=== PATIENT | female | born 1980 | race Caucasian/White ===

== ENCOUNTER → 2020-11-01 | Outpatient (CLI) | payer OTHER, SELFPAY ==
[2020-11-06 14:28] LABS: HPV HC, High Risk Negative (Negative)
[2020-11-06 14:35] LABS: HPV Reflexed? YES, CHARGE PATIENT
== END | disposition home or self-care (01) ==
LOC: LABSPEC 16:19
PROVIDERS: Visit Provider Family Medicine
DX: Z01.419 Encounter for gynecological examination (general) (routine) without abnormal findings (principal); Z12.4 Encounter for screening for malignant neoplasm of cervix
CPT/HCPCS: 87624; 88175; G0145

== ENCOUNTER 2022-01-06 13:32 | Outpatient (CLI) | payer OTHER, SELFPAY ==
--- NOTE | 2022-01-06 13:40 | BI_ITS ---
MAMMOGRAPHY - BILATERAL SCREENING REASON FOR EXAM: Female, 41 years old. Routine annual screening examination. PERTINENT HISTORY: Non-contributory. TECHNIQUE: Digital bilateral breast andrew (3D mammographic acquisition) in the CC and MLO projections. 2-D mediolateral oblique (MLO) and craniocaudad (CC) views of both breasts were obtained. CAD: Full Field Digital Mammography with Computer Added Detection was performed. COMPARISON: None. Baseline examination. FINDINGS: Breast Composition: The breasts are heterogeneously dense, which may obscure small masses. There are no dominant masses or suspicious calcifications. No other significant abnormalities are identified. BI/SCRN MAMM (CAD)W/ANDREW BILAT IMPRESSION: Negative screening mammogram. Yearly followup mammogram recommended. (A) ASSESSMENT CATEGORY: BIRADS Category 1: Negative. A letter regarding these results will be sent to the patient by the facility within 30 days. Approximately 10% of breast cancers are not detected by mammography. A normal mammogram should not delay biopsy of a clinically suspicious abnormality. [id number] Electronically Signed: Carlos Collier MD at 14:38 EST ,
== END 2022-01-06 23:59 | disposition home or self-care (01) ==
LOC: OPBI 13:38
PROVIDERS: PCP Family Medicine; Visit Provider Family Medicine
DX: Z12.31 Encounter for screening mammogram for malignant neoplasm of breast (principal)
CPT/HCPCS: 77063; 77067

== ENCOUNTER → 2023-03-26 | Outpatient (CLI) | payer OTHER, SELFPAY ==
--- NOTE | 2023-03-26 16:01 | BI_ITS ---
MAMMOGRAPHY - BILATERAL SCREENING REASON FOR EXAM: Female, 42 years old. Routine annual screening examination. PERTINENT HISTORY: Non-contributory. TECHNIQUE: Digital bilateral breast andrew (3D mammographic acquisition) in the CC and MLO projections. 2-D mediolateral oblique (MLO) and craniocaudad (CC) views of both breasts were obtained. CAD: Full Field Digital Mammography with Computer Added Detection was performed. COMPARISON: Comparison is made with prior study dated January 06, 2022. FINDINGS: Breast Composition: The breasts are heterogeneously dense, which may obscure small masses. There are no dominant masses or suspicious calcifications. Stable small benign-appearing bilateral axillary lymph nodes. No other significant abnormalities are identified. There has been no significant change since the prior study. BI/SCRN MAMM (CAD)W/ANDREW BILAT IMPRESSION: Stable bilateral screening mammogram. Yearly follow-up mammogram recommended. (A) ASSESSMENT CATEGORY: BIRADS Category 2: Benign. A letter regarding these results will be sent to the patient by the facility within 30 days. Approximately 10% of breast cancers are not detected by mammography. A normal mammogram should not delay biopsy of a clinically suspicious abnormality. [id number] Electronically Signed: Carlos Collier MD at 8:53 EDT ,
== END | disposition home or self-care (01) ==
LOC: OPBI 15:59
PROVIDERS: PCP Family Medicine; Referring Provider Family Medicine; Visit Provider Family Medicine
DX: Z12.31 Encounter for screening mammogram for malignant neoplasm of breast (principal)
CPT/HCPCS: 77063; 77067

== ENCOUNTER → 2023-04-04 | Outpatient (CLI) | payer OTHER, SELFPAY ==
[2023-04-04 11:39] LABS: Absolute Lymphocyte Count 3.09 X10^3/uL (0.83-4.51); Absolute Neutrophil Count 4.7 X10^3/uL (2.0-7.7); Basophil# 0.03 X10^3/uL; Basophil% 0.3 % (0-1); Eosinophil# 0.14 X10^3/uL; Eosinophils% 1.6 % (0-5); Hemoglobin 13.7 g/dL (12.0-15.0); Lymphocyte # 3.09 X10^3/ul (0.83-4.51); Lymphocyte % 35.8 % (19-41); Mean Corp Hgb Conc 32.6 g/dL (32-36); Mean Corpuscular Hgb 28.1 pg (27.0-32.0); Mean Corpuscular Volume 86.1 fL (81-99); Mean Platelet Vol. 9.2 fl (6.2-12.0); Monocyte# 0.61 X10^3/uL; Monocyte% 7.1 % (0-10); NRBC Flagged by Analyzer 0 % (0-5); Neutrophil # 4.74 X10^3/uL (2.7-7.7); Neutrophil % 54.9 % (47-70); Platelet Count 483 K/mm3 (150-450); RBC Distribution Width SD 40.7 fl (35.1-43.9); Red Blood Count 4.88 M/mm3 (4.2-5.4); White Blood Count 8.6 K/mm3 (4.4-11.0)
[2023-04-04 12:03] LABS: ALB/GLOB Ratio 0.9 RATIO (0.9-2.4); AST(SGOT) 26 U/L (15-37); Alanine Aminotransfer ALT/SGPT 55 U/L (13-56); Albumin, Serum 3.6 g/dL (3.2-5.0); Alkaline Phosphatase 99 U/L (45-117); Anion Gap 8 (5-15); BUN 10 mg/dL (7-18); BUN/Creat Ratio 13.8 RATIO (10-20); Calcium,Total 8.8 mg/dL (8.5-10.1); Chloride 105 mmol/L (98-107); Cholesterol 171 mg/dL (200); Creatinine, Serum 0.72 mg/dL (0.55-1.02); EST Glomerular Filtration Rate 94 mL/min (>60); Est Glom Filt Rate - Afr Amer 114 mL/min (>60); Glucose 85 mg/dL (74-106); High Density Lipoprotein 55 mg/dL; Potassium 3.9 mmol/L (3.5-5.1); Protein, Total 7.6 g/dL (6.4-8.2); Sodium Level 139 mmol/L (136-145); Triglycerides 75 mg/dL; Very Low Density Lipoprotein 15 mg/dL (5-40)
== END | disposition home or self-care (01) ==
LOC: LAB 10:47
PROVIDERS: PCP Family Medicine; Referring Provider Family Medicine; Visit Provider Family Medicine
DX: Z00.00 Encounter for general adult medical examination without abnormal findings (principal); R03.0 Elevated blood-pressure reading, without diagnosis of hypertension
CPT/HCPCS: 36415; 80053; 80061; 85025

== ENCOUNTER → 2024-07-01 | Outpatient (CLI) | payer OTHER, SELFPAY ==
--- NOTE | 2024-06-30 16:27 | BI_ITS ---
MAMMOGRAPHY - BILATERAL SCREENING REASON FOR EXAM: Female, 44 years old. Routine annual screening examination. PERTINENT HISTORY: Non-contributory. TECHNIQUE: Digital bilateral breast andrew (3D mammographic acquisition) in the CC and MLO projections. 2-D mediolateral oblique (MLO) and craniocaudad (CC) views of both breasts were obtained. CAD: Full Field Digital Mammography with Computer Added Detection was performed. COMPARISON: Comparison is made with prior study dated March 26, 2023 and January 06, 2022. FINDINGS: Breast Composition: The breasts are heterogeneously dense, which may obscure small masses. There are no dominant masses or suspicious calcifications. Stable small benign-appearing bilateral axillary lymph nodes. No other significant abnormalities are identified. There has been no significant change since the prior study. BI/SCRN MAMM (CAD)W/ANDREW BILAT IMPRESSION: Stable bilateral screening mammogram. Yearly follow-up mammogram recommended. (A) ASSESSMENT CATEGORY: BIRADS Category 2: Benign. A letter regarding these results will be sent to the patient by the facility within 30 days. Approximately 10% of breast cancers are not detected by mammography. A normal mammogram should not delay biopsy of a clinically suspicious abnormality. [id number] Electronically Signed: Carlos Collier MD at 8:18 EDT ,
== END | disposition home or self-care (01) ==
LOC: OPBI 07:03
PROVIDERS: PCP Family Medicine; Referring Provider Family Medicine; Visit Provider Family Medicine
DX: Z12.31 Encounter for screening mammogram for malignant neoplasm of breast (principal)
CPT/HCPCS: 77063; 77067

== ENCOUNTER → 2025-09-29 | Outpatient (CLI) | payer OTHER, SELFPAY ==
--- NOTE | 2025-09-29 11:58 | RAD_ITS ---
PROCEDURE: L/S SPINE MIN 4 VIEWS 09/29/2025 REASON FOR EXAM: R SIDED PAIN TECHNIQUE: Procedure Code: [id number] Modality: DX Procedure: L/S SPINE MIN 4 VIEWS COMPARISON: None FINDINGS: Five views of the lumbosacral spine were obtained and demonstrate the sacrum to be unremarkable. No sacral fractures are noted. SI joints are unremarkable. There are 5 lumbar-type vertebral bodies below the last set of paired ribs. The vertebral body heights are within normal limits. There is no spondylolysis. 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 There is no spondylolisthesis. There is no spondylosis. Disc spaces are well-maintained. Surgical clips are seen in the gallbladder fossa. Surgical clips are seen in the region of the fallopian tubes. 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 Reading Location: [id number]
[2025-10-03 20:08] LABS: Age Gdln ACOG Testing 30-65 (.); HPV APTIMA, High Risk Negative (Negative)
== END | disposition home or self-care (01) ==
LOC: RAD 11:47
PROVIDERS: PCP Family Medicine; Referring Provider Family Medicine; Visit Provider Family Medicine
DX: M54.9 Dorsalgia, unspecified (principal)
CPT/HCPCS: 72110; 87624; 88175; G0145

== ENCOUNTER → 2025-10-04 | Outpatient (CLI) | payer OTHER, SELFPAY ==
[2025-10-04 10:24] LABS: Hematocrit 41.3 % (37-47); Hemoglobin 13.4 g/dL (12.0-15.0); Immature Granulocytes Count 0.030 X10^3/uL (0.0-0.0); Mean Corp Hgb Conc 32.4 g/dL (32-36); Mean Corpuscular Volume 85.0 fL (81-99); Mean Platelet Vol. 9.1 fl (6.2-12.0); NRBC Flagged by Analyzer 0 % (0-5); Platelet Count 476 K/mm3 (150-450); RBC Distribution Width CV 13.2 % (11.6-14.6); RBC Distribution Width SD 41.2 fl (35.1-43.9); Red Blood Count 4.86 M/mm3 (4.2-5.4); White Blood Count 8.6 K/mm3 (4.4-11.0)
[2025-10-04 10:59] LABS: AST(SGOT) 38 U/L (<=31); Alanine Aminotransfer ALT/SGPT 65 U/L (<=34); Albumin, Serum 4.4 g/dL (3.5-5.0); Alkaline Phosphatase 104 U/L (35-104); Anion Gap 9 (5-15); BUN 12 mg/dL (4-19); BUN/Creat Ratio 18.7 RATIO (10-20); Calcium,Total 9.6 mg/dL (7.6-11.0); Carbon Dioxide 23.8 mmol/L (21.0-32.0); Chloride 104 mmol/L (98-108); Cholesterol 196 mg/dL (<=200); Ferritin 34 ng/mL (22-378); Globulin 3.3 g/dL (2.2-4.2); Glucose 84 mg/dL (70-99); Low Density Lipoprotein Calc. 123 mg/dL; Potassium 4.4 mmol/L (3.3-5.1); Triglycerides 63 mg/dL; Very Low Density Lipoprotein 13 mg/dL (5-40); cholesterol:hdl ratio screen 3.19
--- OUTSIDE RECORDS SUMMARY | 2025-10-04 11:04 | XMS RPT_ITS | CCD ---
Author Organization [facility]ini[facility] Care Team Providers Care It Network Engineer Name Role Phone Rowan Baeza Attending Unavailable Rowan Baeza Referring Unavailable Rowan Baeza Primary Care Unavailable HAMMAD NEIL Admitting Unavailable ROWAN BAEZA Referring Unavailable ROWAN BAEZA Consulting Unavailable HAMMAD NEIL Attending Unavailable HAMMAD NEIL Primary Care Unavailable PROVIDER, UNKNOWN Consulting Unavailable PROVIDER, UNKNOWN Consulting Unavailable Problems Problem Classification Problem Date Documented Da te Episodic/Chronic Other screening for suspected conditions (not mental disorders or infectious disease) (1 source) Encounter for screening mammogram for malignant neoplasm of breast; Translations: [Encounter for screening mammogram for malignant neoplasm of breast] Onset: 07-22-2024 Episodic Results Test Name Value Interpretation Reference Range Facility ED MED ADMINISTRATION DETAIL on 03-28-2025 ED MED ADMINISTRATION DETAIL [employer] Medication Administration Record [address] [address] [id number] 03/26/2025 Patient: FAITH NOWAK Sex: Female : 1980 Age: 44y MEASUREMENTS: Wt: 88.5 kg, Ht/Sai: 66.0 in, BMI: 31.47 ALLERGIES: No known drug allergies Medication Ordered Medication Administration Date/Time HYDROmorphone 13:48 03/26 HYDROmorphone (Dilaudid) IVP 0.5 mg given via Given (Dilaudid) IVP 0.5 Site# 1. Allergies verified and confirmed 5 rights. IV patency 13:48 03/26/2025 mg (NOW x1, HIGH established. IV site checked: no pain, redness, or swelling. IV Stella Araiza R.N. ALERT flushed thoroughly pre-medication administration. IVP given by Scanned MEDICATION) nurse. Information reviewed with patient. - 13:49 Stella Araiza R.N. Zofran IVP 4 mg 13:48 03/26 Zofran IVP 4 mg given via Site# 1. Allergies verified Given (NOW x1) and confirmed 5 rights. IV patency established. IV site checked: no 13:48 03/26/2025 pain, redness, or swelling. IV flushed thoroughly pre-medication Stella Araiza R.N. administration. IVP given by nurse. Information reviewed with Scanned patient. - 13:48 Stella Araiza R.N. MethylPREDNISolo 13:48 03/26 MethylPREDNISolone Sodium Succ (Solu-Medrol) IVP Given ne Sodium Succ 125 mg given via Site# 1. Allergies verified and confirmed 5 rights. 13:48 03/26/2025 (Solu-Medrol) IVP IV patency established. IV site checked: no pain, redness, or Stella Araiza R.N. 125 mg (NOW x1) swelling. IV flushed thoroughly pre-medication administration. IVP Scanned given by nurse. Information reviewed with patient. - 13:48 Stella Araiza R.N. 1 of 2 [employer] Medication Ordered Medication Administration Date/Time IV NS 0.9 % 1000 13:47 03/26 IV NS 0.9 % 1000 mL started in bag#1 1000 mL at Started mL at 500 mL/hr 500 mL/hr via Site# 1. Allergies verified and confirmed 5 rights. IV 13:47 03/26/2025 (NOW x1) patency established. IV site checked: no pain, redness, or swelling. Stella Araiza R.N. IV flushed thoroughly pre-medication administration. Information Stopped reviewed with patient. Verbalizes understanding. - 13:48 Stella 15:47 03/26/2025 Jose Araiza R.N. Scanned 15:47 03/26 Medication Discontinued: bag #1 infused upon discharge. Total amount infused: 1000 mL. IV patency established. IV site checked: no pain, redness, or swelling. IV flushed thoroughly post-medication administration. - 16:02 Stella Araiza R.N. 2 of 2 [facility] ED NURSES CLINICAL NOTEon ED NURSES CLINICAL NOTE Nurse Narrative Nurse Clinical Narrative [facility] [address] [place] [address] [phone] 03/26/2025 13:26:00 Patient: FAITH NOWAK Sex: Female : 1980 Age: 44y Disposition: Discharge to Home Disposition Decision Time: 15:16 03/26/2025 Departure Time: 16:03 03/26/2025 TRIAGE Arrived by private vehicle. Historian: (spouse and patient). Accompanied by family and spouse. ( Pt states that on Thursday morning she was bending down to give a treat to her dog when she felt a sudden zap of pain in her right lower back. The patient states that she has had this happen multiple times in the past but, normally after a few days of rest she is back to normal. The patient states that this time she is still having persistent pain and she is requiring more assistance than usual performing normal tasks like sitting and standing up.). Triage time: 13:22 03/26/2025. Chief Complaint: BACK PAIN. Alert. Onset. (2 days ago). The patient has had new onset of weakness of the right leg. The patient has had trouble walking. The patient has had right leg pain. No history of recent trauma. ( Pt states that she has pain that radiates into her right buttock.). No numbness, tingling or fever. Pre-hospital notification of patient arrival was not received. 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 Took Tylenol. SEPSIS SCREEN: NEGATIVE. SIRS criteria negative. No possible sources of infection. -- 13:38 03/26/25 EDT Douglas Harman E.M.T.-P. 1 of 4 Nurse Narrative 13:32 03/26/25. BP: 178/103 MAP: 128. HR: 81. RR: 18. O2 saturation: 99% Temperature: 98.3 F. Pain level now 9/10. Describes the pain as tightness and burning. Abrupt in onset. Physician notified. -- 13:33 03/26/25 EDT Douglas Harman E.M.T.-P. Acuity: LEVEL 3. 13:41 03/26/25. -- 13:41 05/11/25 EDT Nate Reddy R.N. Measurements: 13:37 03/26/25 Wt: 88.5 kg, Ht/Sai: 66.0 in, BMI: 31.47 -- 13:37 03/26/25 EDT Douglas Harman E.M.T.-P. Medications: bupropion HCl SR 150 mg tablet,12 hr sustained-release: TAKE 1 TABLET BY MOUTH TWICE DAILY -- 13:39 03/26/25 EDT Douglas Harman E.M.T.-P. methylphenidate ER 36 mg tablet,extended release 24 hr -- 13:39 03/26/25 EDT Douglas Harman E.M.T.-P. Allergies: no known drug allergies -- 13:03/26/25 EDT Douglas Harman E.M.T.-P. Problems: Depression: Active -- 13:03/26/25 EDT Douglas Harman E.M.T.-P. Anxiety disorder: Active -- 13:03/26/25 EDT Douglas Harman E.M.T.-P. Surgeries: Cholecystectomy -- 13:32 03/26/25 EDT Douglas Harman E.M.T.-P. Tubal Ligation -- 13:32 03/26/25 EDT Douglas Harman E.M.T.-P. History 13:22 03/26/25. SOCIAL HX: Never smoker. No alcohol use or drug use. The patient has not traveled outside the [place] Infectious disease exposure: No infectious disease exposure. ABUSE ASSESSMENT: The patient answered yes to the question(s) Do you feel safe in your home? and no to the question(s) Are you afraid to go home?. SELF HARM ASSESSMENT: Self harm assessment was performed. The patient answered no to the 2 of 4 Nurse Narrative question(s) Have you recently felt down, depressed, or hopeless?, Do you have thoughts of harming or killing yourself?, Do you have a plan for harming or killing yourself?, Have you recently had thoughts about harming or killing others?, Do you have any dangerous items in your possession?, Have you noticed less interest or pleasure in doing things? and Are you here because you tried to hurt yourself?. FALL RISK ASSESSMENT: Fall risk assessment completed. Risk factors identified include severe pain, weakness and patient impairment of mobility. Fall interventions initiated. Side rails up x2. Bed in low position. Brakes on. Patient identified as a fall risk by ID band. Call light in reach of patient. -- 13:38 03/26/25 EDT Douglas Harman E.M.T.-P. Assessment 13:03/26/25. The patient states feels the same. -- 13:38 03/26/25 EDT Douglas Harman E.M.T.-P. Interventions 13:22 03/26/25. Identification band and fall band on patient. -- 13:38 03/26/25 EDT Douglas Harman E.M.T.-P. PHYSICAL ASSESSMENT 14:18 03/26/25. GENERAL / NEURO / PSYCH: Alert. Oriented X 4. Appears in no acute distress. RESPIRATORY: Respirations not labored. CVS: Capillary refill less than 2 seconds. BACK: ROM of neck and back within normal limits. ( pain right lower back). -- 14:18 03/26/25 EDT Stella Araiza R.N. NURSING PROGRESS NOTES 13:47 03/26/25. IV NS 0.9 % 1000 mL started in bag#1 1000 mL at 500 mL/hr via Site# 1. Allergies verified and confirmed 5 rights. IV patency established. IV site checked: no pain, redness, or swelling. IV flushed thoroughly pre-medication administration. Information reviewed with patient. Verbalizes understanding. -- 13:48 03/26/25 EDT Stella Araiza R.N. 13:48 03/26/25. MethylPREDNIS (more content not included)... [facility] ED ORDER SHEET (CPOE ONLY)on 03-28-2025 ED ORDER SHEET (CPOE ONLY) Order Sheet Order Sheet [address] [place] [address] [id number] 03/26/2025 Patient: FAITH NOWAK Sex: Female : 1980 Age: 44y MEASUREMENTS: Wt: 88.5 kg, Ht/Sai: 66.0 in, BMI: 31.47 ALLERGIES: No known drug allergies MEDICATION/IV/DRIP/FLUI D ORDERS Order Description Priority Entered Acknowledged Completed HYDROmorphone (Dilaudid) 13:39 03/26/2025 13:43 13:49 IVP0.5 mg (NOW x1, HIGH Hammad Neil, 03/26/2025 03/26/2025 ALERT MEDICATION) D.O. Stella Gastelum R.N. R.N. Zofran IVP4 mg (NOW x1) 13:39 03/26/2025 13:43 13:48 Hammad Neil, 03/26/2025 03/26/2025 D.O. Stella Gastelum R.N. R.N. MethylPREDNISolone Sodium 13:39 03/26/2025 13:43 13:48 Succ (Solu-Medrol) [id number] mg Hammad Neil, 03/26/2025 03/26/2025 (NOW x1) D.O. Stella Gastelum R.N. R.N. IV NS 0.9 %1000 mL at 500 13:39 03/26/2025 13:43 13:48 mL/hr (NOW x1) Hammad Neil, 03/26/2025 03/26/2025 D.O. Stella Gastelum, R.N. R.N. 1 of 2 Order Sheet LAB ORDERS Order Description Priority Entered Acknowledged Collected Completed DIAGNOSTIC STUDY ORDERS Order Description Priority Entered Acknowledged Completed STAFF ORDERS Order Description Priority Entered Acknowledged Collected Completed IV Saline Lock 13:39 03/26/2025 13:40 03/26/2025 13:53 03/26/2025 Stella De La Rosa Alisha Whytsell, D.O. R.N. R.N. [Electronically signed by Hammad Neil D.O. (03/26/2025 20:48 EDT)] 2 of 2 [facility] ED PHYSICIAN CLINICAL REPORT on 03-28-2025 ED PHYSICIAN CLINICAL REPORT Narrative Physician Clinical Narrative [address] [place] [address] [id number] 03/26/2025 13:26:00 Patient: FAITH NOWAK [facility]#: [id number] Sex: Female : 1980 Age: 44y Disposition: Discharge to Home Disposition Decision Time: 15:16 03/26/2025 Departure Time: 16:03 03/26/2025 Measurements Wt: 88.5 kg, Ht/Sai: 66.0 in, BMI: 31.47 Initial Vital Sign Measured Time BP MAP HR RR O2Sat ETCO2 Temp Pain GCS RTS 13:29 03/26/2025 75 100% Time Seen: 13:17 03/26/2025. Arrived- By private vehicle. Historian- patient. HISTORY OF PRESENT ILLNESS Chief Complaint: BACK PAIN. Onset- 2 days; patient is on Thursday she was bending down to get her dog a tree and she had pain in the right side of her lower back. Since then the pain is really not despite using when she does this last day or 2 and then gets better now she is still having hard time getting up or moving. She says the pain when she moves as a 9/10 otherwise as a 3/10 denies any bowel bladder dysfunction or numbness or tingling. Past medical history is unremarkable then she has had gallbladder issues cholecystectomy as well as tubal ligation. Social history is not smoke or drank. and it is still present. REVIEW OF SYSTEMS : No difficulty with urination. THROAT: No sore throat. NEUROLOGICAL: No headache. CONSTITUTIONAL: No fever. GI: No abdominal pain. 1 of 4 Narrative PAST HISTORY See nurses notes. Anxiety disorder: [Active] Depression: [Active] Surgeries: Cholecystectomy Tubal Ligation Medications: bupropion HCl SR 150 mg tablet,12 hr sustained-release: TAKE 1 TABLET BY MOUTH TWICE DAILY methylphenidate ER 36 mg tablet,extended release 24 hr Allergies: no known drug allergies SOCIAL HISTORY Never smoker. No alcohol use. ADDITIONAL NOTES The nursing notes have been reviewed. PHYSICAL EXAM Appearance: Alert. No acute distress. HEENT: Normal external inspection. Eyes: Pupils equal, round and reactive to light. ENT: Ears normal. Neck: Normal inspection. Neck nontender. CVS: Normal heart rate and rhythm. Heart sounds normal. Respiratory: No respiratory distress. Breath sounds normal. Abdomen: Normal inspection. Soft and nontender. Back: Soft tissue tenderness (right flank area has tenderness no swelling ecchymosis bruising she has no midline tenderness. She does have tenderness with movement bending). 2 of 4 Narrative Skin: Skin warm and dry. Normal skin color. Normal skin turgor. Extremities: Extremities exhibit normal ROM. Extremities nontender. Neuro: Oriented X 3. Mood/affect normal. PROGRESS AND PROCEDURES MEDICAL DECISION MAKING: (patient is on Thursday she was bending down to get her dog a tree and she had pain in the right side of her lower back. Since then the pain is really not despite using when she does this last day or 2 and then gets better now she is still having hard time getting up or moving. She says the pain when she moves as a 9/10 otherwise as a 3/10 denies any bowel bladder dysfunction or numbness or tingling. Past medical history is unremarkable then she has had gallbladder issues cholecystectomy as well as tubal ligation. Social history is not smoke or drank.). Disposition: Condition: stable. Discharged in fair condition. Discharge decision based on the following: patient's condition is stable; patient's exam is stable. CLINICAL IMPRESSION Acute pain. Acute nontraumatic lumbar back pain associated with muscle strain. DISCHARGE INSTRUCTIONS Apply ice. Prescription Medications: oxycodone-acetaminophen 5 mg-325 mg tablet: Take 1 tablet by mouth every six hours as needed for pain for 4 days, dispense 12 tablet. Refills 0. Pharmacy: [facility] [address] [place] [address]. prednisone 20 mg tablet: Take 1 tablet by mouth twice a day for 7 days, dispense 10 tablet. Refills 0. Notes take 1 tablet every 12 hours for 3 days and then 1 tablet for 4 days dispensed 10. Pharmacy: [facility] [address] [place] [address]. Follow-up: Follow up with your doctor in three days. Call for an appointment. 3 of 4 Narrative (Electronically signed by Hammad Neil D.O. 03/26/25 20:48:12 EDT) Generated by [facility] 4 of 4 [facility] ED SUPER BILLon 03-28-2025 ED SUPER BILL [address] [address] [id number] 03/26/2025 Patient: FAITH NOWAK Sex: Female : 1980 Age: 44y Item Facility Professional Category Description Code Code Quantity Fee Total Drugs Normal Saline 896602 1 $0.00 $0.00 1000cc (354251) Nurse/E/M EMERGENCY 313228 1 $0.00 $0.00 DEPARTMENT VISIT HIGH/URGENT SEVERITY (48937-06) Nurse/IV/IM/Infusions Hydration 476838 2 $0.00 $0.00 additional hour (62421) Nurse/IV/IM/Infusions IVP additional 596635 2 $0.00 $0.00 push (27905) Nurse/IV/IM/Infusions IVP initial 907056 1 $0.00 $0.00 (21496) Grand Total $0.00 Providers Hammad Neil D.O. 1 of 2 [facility] Chief Complaint BACK PAIN. Principal Diagnosis Acute pain. Acute nontraumatic lumbar back pain associated with muscle strain. ICD-10 Codes R52: Pain, unspecified S39.012A: Strain of muscle, fascia and tendon of lower back, initial encounter M54.50: Low back pain, unspecified M54.9: Dorsalgia, unspecified [address] [facility] ED VISIT SUMMARYon ED VISIT SUMMARY Visit Overview Visit Overview [address] [address] [id number] 03/26/2025 Patient: FAITH NOWAK Sex: Female : 1980 Age: 44y 03/28/2025 09:44 PM EDT ED Arrival:13:26 03/26/2025 EDT Status: Recent Travel: Language:eng Adv Directive: Isolation Status: Ethnicity:N Fall Risk: Infectious Disease Exposure: Measurements:5'6 / 167.6 Self-Harm Status: Sepsis Screen: cm 195.0 lb / 88.5 kg Chief Complaint: ALLERGIES No Known Drug Allergies HOME MEDICATIONS bupropion HCl SR 150 mg tablet,12 hr sustained-release: TAKE 1 TABLET BY MOUTH TWICE DAILY methylphenidate ER 36 mg tablet,extended release 24 hr PAST MEDICAL HISTORY / PROBLEMS Anxiety disorder: Active Depression: Active See nurses notes 1 of 3 Visit Overview PAST SURGICAL HISTORY Cholecystectomy Tubal Ligation SOCIAL HISTORY ED COURSE MEDICATIONS GIVEN IN EMERGENCY DEPARTMENT 13:47 03/26/25 IV NS 0.9 % 1000 mL 500 mL/hr 13:48 03/26/25 MethylPREDNISolone Sodium Succ (Solu-Medrol) IVP 125 mg 13:48 03/26/25 Zofran IVP 4 mg 13:48 03/26/25 HYDROmorphone (Dilaudid) IVP 0.5 mg IV SITE INFORMATION INTAKE OUTPUT REASSESMENT (most recent) VITAL SIGNS First Vitals Last Vitals Temp 13:29 03/26/25 Temp 16:01 03/26/25 BP 13:29 03/26/25 BP 16:01 03/26/25 HR 13:29 03/26/25 75 HR 16:01 03/26/25 RR 13:29 03/26/25 RR 16:01 03/26/25 O2 Sat 13:29 03/26/25 100% O2 Sat 16:01 03/26/25 Pain 13:29 03/26/25 Pain 16:01 03/26/25 2 ETCO2 13:29 03/26/25 ETCO2 16:01 03/26/25 GCS 13:29 03/26/25 GCS 16:01 03/26/25 RTS 13:29 03/26/25 RTS 16:01 03/26/25 PROCEDURES NURSING INTERVENTIONS LABS / STUDIES 2 of 3 Visit Overview CLINICAL IMPRESSION ACUTE NONTRAUMATIC LUMBAR BACK PAIN ASSOCIATED WITH MUSCLE STRAIN ACUTE PAIN 3 of 3 [facility] ED VITALS FLOW SHEETon 03-28 ED VITALS FLOW SHEET Vitals Vital Sign Flow Sheet [address] [address] [id number] 03/26/2025 Patient: FAITH NOWAK Sex: Female : 1980 Age: 44y Measurements Wt: 88.5 kg, Ht/Sai: 66.0 in, BMI: 31.47 Measured Time BP MAP HR RR O2Sat ETCO2 Temp Pain GCS RTS 16:01 03/26/2025 2 15:36 03/26/2025 117/74 96 62 15:34 03/26/2025 68 96% 15:29 03/26/2025 64 96% 15:24 03/26/2025 61 95% 15:21 03/26/2025 116/73 87 58 15:19 03/26/2025 67 97% 15:14 03/26/2025 63 95% 15:09 03/26/2025 59 94% 15:06 03/26/2025 125/77 84 69 15:04 03/26/2025 66 94% 14:59 03/26/2025 79 99% 14:54 03/26/2025 78 94% 14:51 03/26/2025 120/76 89 66 14:49 03/26/2025 59 94% 1 of 2 Vitals Measured Time BP MAP HR RR O2Sat ETCO2 Temp Pain GCS RTS 14:44 03/26/2025 69 96% 14:39 03/26/2025 62 93% 14:36 03/26/2025 116/79 93 65 14:34 03/26/2025 76 97% 14:29 03/26/2025 70 95% 14:24 03/26/2025 69 95% 14:22 03/26/2025 131/73 92 65 14:19 03/26/2025 68 94% 14:14 03/26/2025 80 98% 14:09 03/26/2025 77 96% 14:07 03/26/2025 140/82 101 71 14:04 03/26/2025 75 95% 13:59 03/26/2025 78 95% 13:54 03/26/2025 79 97% 13:53 03/26/2025 170/96 127 81 13:49 03/26/2025 80 98% 13:44 03/26/2025 87 98% 13:39 03/26/2025 76 99% 13:37 03/26/2025 189/102 126 79 13:34 03/26/2025 89 99% 13:32 03/26/2025 178/103 128 81 18 99% 98.3 F 9 13:29 03/26/2025 75 100% 2 of 2 [facility] SCRN MAMM (CAD)W/ANDREW BILATo n 06-30-2024 SCRN MAMM (CAD)W/ANDREW BILAT [facility] [address] [place] [address] SCRN MAMM (CAD)W/ANDREW BILAT MR#: [id number] Acct: [id number] Name: FAITH NOWAK Rep #: [id number] : 1980 F 44 From: Carlos rose MD PCP: Dr. Rowan Baeza MD Status: [facility] Study: SCRN MAMM (CAD)W/ANDREW BILAT Date of Exam: 06/16 04/08 Exam# [id number] Ordering [place]: [place] [id number] MAMMOGRAPHY - BILATERAL SCREENING REASON FOR EXAM: Female, 44 years old. Routine annual screening examination. PERTINENT HISTORY: Non-contributory. TECHNIQUE: Digital bilateral breast andrew (3D mammographic acquisition) in the CC and MLO projections. 2-D mediolateral oblique (MLO) and craniocaudad (CC) views of both breasts were obtained. CAD: Full Field Digital Mammography with Computer Added Detection was performed. COMPARISON: Comparison is made with prior study dated March 26, 2023 and January 06, 2022. FINDINGS: Breast Composition: The breasts are heterogeneously dense, which may obscure small masses. There are no dominant masses or suspicious calcifications. Stable small benign-appearing bilateral axillary lymph nodes. No other significant abnormalities are identified. There has been no significant change since the prior study. BI/SCRN MAMM (CAD)W/ANDREW BILAT IMPRESSION: Stable bilateral screening mammogram. Yearly follow-up mammogram recommended. (A) ASSESSMENT CATEGORY: BIRADS Category 2: Benign. A letter regarding these results will be sent to the patient by the facility within 30 days. Approximately 10% of breast cancers are not detected by mammography. A normal mammogram should not delay biopsy of a clinically suspicious abnormality. [id number] Electronically Signed: Carlos Collier MD at 8:18 EDT Reading Location ID and State: [address] [place] [address] , Service support , CC: Dr. Rowan Baeza MD Motor Runner: Signed [facility] Final Surgical Pathology Rep [facility] 08-08-2019 Final Surgical Pathology Report . Pathology Reports Accession: Collected Date/Time: Received Date/Time: Pathologist: [id number] 08/04/2019 14:39 EDT 08/05/2019 14:39 EDT DO J LUIS SHINE Final Surgical Pathology Report DIAGNOSIS: GALLBLADDER -- CHOLELITHIASIS, CHRONIC CHOLECYSTITIS AND CHOLESTEROLOSIS. COMMENT: [facility] - A# [id number] CLINICAL INFORMATION: BILIARY COLIC SPECIMEN: A GALLBLADDER GROSS DESCRIPTION: Received in formalin labeled with patient's name is an 8 x 3.4 x 3.1 cm gallbladder with an attached cystic duct. Serosa is loja-red and smooth. Opening shows a 3.4 x 2.3 x 2.1 cm yellow lobulated cholelith impacted in the fundus. There is scant loja bile. The mucosa ranges from loja and flattened to velvety with a moderate amount of yellow streaking. The wall measures up to 0.7 cm in thickness. RS -1 Dictated by Yeny TURK ([facility]) MICROSCOPIC DESCRIPTION: Slides reviewed. Electronically Signed by Pathology Report verified by [facility] Electronically signed by J LUIS SHINE DO Sign out Date: 08/08/2019 12:40 Performing Lab: [facility], [address] [place] [id number] [place] [address] ([place]) Comment on above: Performed By: #### S PFR #### [address] [address] Encounters Encounter Date Encounter Type Care Provider Facility Start: 03-26-2025 End: 03-26-2025 Emergency department patient visit HAMMAD NEIL [facility] Start: 07-01-2024 End: 07-01-2024 ambulatory Rowan Ohbridget Facility:[facility] Payers Date Payer Category Payer Self-pay 2024 Unknown [id number] 1980 Unknown [id number] Private Health Insurance [id number] Unknown [id number] Summary Purpose Family History No Family History Records FoundNo Family History Records FoundNo Family History Records Found Advance Directives No Advanced Directives Records FoundNo Advanced Directives Records FoundNo Advanced Directives Records Found Additional Source Comments INFORMATION SOURCE (unrecogn ized section and content) DATE CREATED AUTHOR 08/08/2019 [facility] ([place]) DATE CREATED AUTHOR AUTHOR'S ORGANIZ ATION 07/24/2024 [facility] DATE CREATED AUTHOR AUTHOR'S ORGANIZ ATION 03/30/2025 [facility] FOR RECORDS PERTAINING TO PATIENTS WHO ARE OR HAVE BEEN ENROLLED IN A CHEMICAL DEPENDENCY/SUBSTANCEABUSE PROGRAM, SOME INFORMATION MAY BE OMITTED. This clinical summary was aggregated from multiple sources. Caution should be exercised in using it in the provision of clinical care. This summary normalizes information from multiple sources, and as a consequence, information in this document may materially change the coding, format and clinical context of patient data. In addition, data may be omitted in some cases. CLINICAL DECISIONS SHOULD BE BASED ON THE PRIMARY CLINICAL RECORDS. [employer] provides no warranty or guarantee of the accuracy or completeness of information in this document.
[2025-10-04 11:06] LABS: Glucose 75GTT - Fasting 84 mg/dL (70-99)
[2025-10-04 14:31] LABS: Glucose 75GTT - 120 minutes 99 mg/dL (70-140)
[2025-10-04 14:31] LABS: Glucose 75GTT - 60 minutes 93 mg/dL (100-160)
[2025-10-04 14:34] LABS: Glucose 75GTT - 30 minutes 122 mg/dL (100-160)
[2025-10-09 16:09] LABS: INSULIN 120 MIN 64.3 uIU/mL (0.0-145.4); INSULIN 30 MIN 128.0 uIU/mL (0.0-121.9); INSULIN 60 MIN 70.4 uIU/mL (0.0-163.5); INSULIN FASTING 16.6 uIU/mL (2.6-24.9)
== END | disposition home or self-care (01) ==
LOC: LAB 09:48
PROVIDERS: PCP Family Medicine; Referring Provider Family Medicine; Visit Provider Family Medicine
DX: Z00.00 Encounter for general adult medical examination without abnormal findings (principal); R73.01 Impaired fasting glucose; K21.9 Gastro-esophageal reflux disease without esophagitis
CPT/HCPCS: 36415; 80053; 80061; 82728; 82951; 82952; 83036; 83525; 85025

== ENCOUNTER → 2025-10-24 | Outpatient (CLI) | payer OTHER, SELFPAY ==
--- NOTE | 2025-10-24 16:11 | BI_ITS ---
EXAM: SCRN MAMM (CAD)W/ANDREW BILAT DATE: 10/24/2025 CLINICAL HISTORY: F, Age 45 y/o , SCREENING No family history. TECHNIQUE: Procedure Code: [id number] Modality: MG Procedure: SCRN MAMM (CAD)W/ANDREW BILAT COMPARISON: Prior exam(s) dated June 30, 2024.. FINDINGS: TISSUE DENSITY: The breasts are heterogeneously dense, which may obscure small masses. Bilateral Breast Mammographic Findings: No significant masses, calcifications or other abnormalities are identified. Stable benign-appearing axillary lymph nodes. No suspicious masses, areas of developing architectural distortion, or suspicious calcifications. There has been no significant interval change. BI/SCRN MAMM (CAD)W/ANDREW BILAT IMPRESSION: Stable bilateral screening mammogram. OVERALL FINAL ASSESSMENT BI-RADS 2: BENIGN RECOMMENDATION: Routine annual follow-up in 1 Year Additional Recommendation none A letter with findings and recommendations will be mailed to the patient. Reading Location: [place] [id number]
== END | disposition home or self-care (01) ==
PROVIDERS: PCP Family Medicine; Referring Provider Family Medicine; Visit Provider Family Medicine
DX: Z12.31 Encounter for screening mammogram for malignant neoplasm of breast (principal)
CPT/HCPCS: 77063; 77067